=== PATIENT | female | born 1945 | race Caucasian/White ===

== ENCOUNTER 2017-02-11 12:07 | Emergency (ER) | payer MEDICARE ==
--- NOTE | ~2017-02-11 | CT71 ---
[facility] A Service of [facility] RADIOLOGY TEXT RESULTS PATIENT: ROSS HAN LOCATION: [facility] : 49 UNIT #: [id number] AGE: [address]: Charles Pino MD SEX: F ORDER DR: [id number] [facility] [address] [place], [place] [address] [id number] E MR#: [id number] Acc #: [id number] NAME: ROSS HAN. : 1945 SEX: F STUDY DATE/TIME: 02/11/2017 13:09 UNIT: [facility] ROOM: STUDY DESCRIPTION: CT Head Wo Contrast Attending Physician: Charles Pino M.D. Ordering Physician: Charlotte Leonard M.D. Primary Care Physician: Shorty Sarabia M.D. MEDICAL IMAGING REPORT This report is preliminary unless electronic signature is present EXAM Head CT without contrast HISTORY Patient fell down 2 steps today and hit her head. Headache. TECHNIQUE Axial images were obtained without contrast. This CT exam was performed with one or more of the following radiation dose reduction techniques: automatic control, adjustment of mA and/or kV according to patient size, and iterative reconstruction. FINDINGS Axial images without contrast show a small focus of hyperdensity in the right frontal lobe with a convexity. This is consistent with a minimal focal hemorrhage either over the cortex or in the subarachnoid space. There is also a probable small hemorrhagic contusion in the left frontal lobe. This is not as definite. No mass effect is seen. No midline shift is noted. IMPRESSION Very small bifrontal hemorrhagic contusions. The blood is either in the cortex or subarachnoid space most likely in the cortex. No appreciable mass effect or midline shift. No evidence of subdural blood or epidural blood. Dictated by... Warner Weir M.D. THIS IS AN ELECTRONICALLY VERIFIED REPORT Warner Weir M.D. at 02/12/2017 4:57 PM JJF/frederic [facility] A Service of [facility] RADIOLOGY TEXT RESULTS PATIENT: ROSS HAN LOCATION: [facility] : 49 UNIT #: [id number] AGE: [address]: Charles Pino MD SEX: F ORDER DR: TD: 02/11/2017 14:33 JOB #: [id number] MEDICAL IMAGING REPORT Page 1 of 1 COPY
--- NOTE | ~2017-02-11 | CR181 ---
[facility] A Service of [facility] RADIOLOGY TEXT RESULTS PATIENT: ROSS HAN LOCATION: [facility] : 47 UNIT #: [id number] AGE: [address]: Charles Pino MD SEX: F ORDER DR: [id number] [facility] [address] [place], [place] [address] [id number] E MR#: [id number] Acc #: [id number] NAME: ROSS HAN : 1945 SEX: F STUDY DATE/TIME: 02/11/2017 13:32 UNIT: [facility] ROOM: STUDY DESCRIPTION: CR Lumbar Spine 2 or 3 Views Attending Physician: Charles Pino M.D. Referring Physician: Matty Grewal M.D. Ordering Physician: Khoi Guo M.D. Primary Care Physician: Shorty Sarabia M.D. MEDICAL IMAGING REPORT This report is preliminary unless electronic signature is present EXAM Lumbar spine, 3 views. DATE OF EXAM 02/11/2017 HISTORY Back pain after fall today. FINDINGS 3 views of the lumbar spine demonstrate mild left lumbar curve. Moderate disc space narrowing at L5-S1 and minimal disc space narrowing at L4-5. Cqfh-dd-ezdsrnau degenerative facet arthropathy in the lower lumbar spine. Small multilevel marginal osteophytes from L2 to L5. No fracture. No abnormal sclerosis. IMPRESSION 1. Vhre-gy-wjgrlnkt multilevel degenerative and hypertrophic changes. 2. No acute finding. No fracture. 3. Mild left lumbar curve. Dictated by... Tam Kay M.D. THIS IS AN ELECTRONICALLY VERIFIED REPORT Tam Kay M.D. at 02/11/2017 10:50 PM CEDRIC/ana TD: 02/11/2017 15:44 JOB #: [id number] [facility] A Service [facility] RADIOLOGY TEXT RESULTS PATIENT: ROSS HAN LOCATION: [facility] : 49 UNIT #: [id number] AGE: [address]: Charles Pino MD SEX: F ORDER DR: MEDICAL IMAGING REPORT Page 1 of 1 COPY
--- NOTE | ~2017-02-11 | CR150 ---
[facility] A Service of [facility] RADIOLOGY TEXT RESULTS PATIENT: ROSS HAN LOCATION: [facility] : 49 UNIT #: [id number] AGE: [address]: Charles Pino MD SEX: F ORDER DR: [id number] [facility] [address] [place], [place] [address] [id number] E MR#: [id number] Acc #: [id number] NAME: ROSS HAN : 1945 SEX: F STUDY DATE/TIME: 02/11/2017 13:32 UNIT: [facility] ROOM: STUDY DESCRIPTION: CR Hip Min 2 Views Lt Attending Physician: Charles Pino M.D. Ordering Physician: [facility] Primary Care Physician: Shorty Sarabia M.D. MEDICAL IMAGING REPORT This report is preliminary unless electronic signature is present EXAM Left hip 2 views HISTORY Hip pain after fall down stairs today. FINDINGS 2 views of the left hip are negative. Normal bone alignment. No fracture, joint space narrowing or dislocation. Mild arterial calcifications in the pelvis. IMPRESSION Negative left hip. No acute finding. Dictated by... Tam Kay M.D. THIS IS AN ELECTRONICALLY VERIFIED REPORT Tam Kay M.D. at 02/11/2017 10:50 PM DFMark/herbert TD: 02/11/2017 15:18 JOB #: [id number] MEDICAL IMAGING REPORT Page 1 of 1 COPY
[~2017-02-11 12:07] MED LIST: ACETAMINOPHEN; ACETAMINOPHEN PO; ALEVE PO; BACTRIM DS TABL1 TA2 PO; BACTRIM DS TABL1 TAB PO; CELEXA PO; CLARITIN10 M3 PO; COLACE PO; CRESTOR PO; FAMOTIDINE PO; HYDROCODONE-APA1 T56 PO; HYZAAR PO; IBUPROFEN200 M1 PO; LORTAB 7.5-5001 TAB PO; LOSARTAN-HCTZ1 EAC2 PO; OMNICEF PO; ZOLOFT PO; ZYRTEC PO
== END 2017-02-11 17:00 | disposition short-term general hospital (02) ==
LOC: CED 12:07
DX: S06.300A Unspecified focal traumatic brain injury without loss of consciousness, initial encounter (principal); I10 Essential (primary) hypertension; E78.00 Pure hypercholesterolemia, unspecified; Z88.8 Allergy status to other drugs, medicaments and biological substances; W01.0XXA Fall on same level from slipping, tripping and stumbling without subsequent striking against object, initial encounter; Y92.009 Unspecified place in unspecified non-institutional (private) residence as the place of occurrence of the external cause
CPT/HCPCS: 70450; 72100; 73502; 99285